=== PATIENT | female | born 1970 | race Caucasian/White ===

== ENCOUNTER → 2018-10-10 | Outpatient (CLI) | payer OTHER ==
[~2018-10-10] MED LIST: ADULT LOW DOSE81 MG; ADULT LOW DOSE81 MG PO; ALLEGRA ALLERGY60 MG PO; ALLEGRA60 MG PO; CENTRUM SILVER1 EAC4 PO; CIPROFLOXACIN500 M1 PO; CLIMARA 0.070.075 MG TOP; FLAGYL500 MG PO; IBUPROFEN 800800 MG PO; NORCO 5-325 TA1 EACH PO; NORCO 7.5-3251 EACH PO; ONDANSETRON HCL4 M2 PO; PAXIL10 MG; TIZANIDINE HCL 22 M1 PO; ULTRAM 50MG TAB50 MG; XANAX 0.5 MG0.5 MG PO; ZYRTEC; [UNRECOGNIZED DRUG - OTHER]
== END ==
LOC: M.ULTRA 10:30
DX: E04.2 Nontoxic multinodular goiter (principal)